=== PATIENT | male | born 1980 | race Caucasian/White ===

== ENCOUNTER → 2018-09-29 | Outpatient (CLI) | payer BC ==
[~2018-09-29] MED LIST: CHOL100052 PO; CYAN500T39 PO; DESV50TA9 PO; DEXT10TA9 PO; ESC10 FT; INDO-23 PO
== END ==
LOC: LAB 10:16
PROVIDERS: ATTEND Emergency Medicine
DX: F41.8 Other specified anxiety disorders (principal)
CPT/HCPCS: 36415; 82306; 82607